=== PATIENT | female | born 1970 ===

== ENCOUNTER 2019-05-19 08:48 | Outpatient (CLI) | payer BC ==
--- NOTE | 2019-05-19 10:06 | MRI ---
Exam: Brain MRI and internal auditory canal MRI with and without contrast HISTORY: Hearing loss COMPARISON: None FINDINGS: Brain MRI: Hemorrhage: No parenchymal hemorrhage or extra-axial hematoma Calvarium: Appropriate T1 marrow signal intensity Midline brain parenchyma: Unremarkable Cerebrum:No parenchymal mass, mass effect or midline shift. Brain volume is age-appropriate. Cortical norman-white matter differentiation is preserved. No significant T2 or FLAIR white matter hyperintensities. Ventricles: No evidence of hydrocephalus. Sinuses and mastoid air cells: Adequate aeration Diffusion: Central arterial flow is maintained. Absent restricted diffusion. Postcontrast images: No pathologic enhancement of the brain parenchyma. Internal auditory canal MRI: Symmetric signal intensity of the VII/VIII cranial nerve complexes as well as the internal artery can al and inner ear structures. There is no abnormal enhancement There is appropriate signal intensity in the visualized V and cranial nerve complexes. No abnormal enhancement. IMPRESSION: 1. Unremarkable pre and postcontrast brain MRI. 2. Unremarkable MRI of the internal artery canals as well as the VII and VIII cranial nerves.
== END 2019-05-19 08:49 | disposition home or self-care (01) ==
LOC: SCSMRI 08:48
PROVIDERS: ATTEND Specialist
DX: H90.5 Unspecified sensorineural hearing loss (principal)
CPT/HCPCS: 70553

== ENCOUNTER 2019-06-26 12:20 | Outpatient (CLI) | payer BC ==
--- NOTE | 2019-06-26 13:33 | CT ---
CT temporal bones noncontrast: DATE: 06/26/2019 HISTORY: 48-year-old female with dizziness, pulsatile tinnitus, and left ear hearing loss. FINDINGS: Bilateral middle ear cavities, mastoid antra, and mastoid air cells, are clear. Ossicles are intact w ith no displacement or erosion. No dehiscence of superior semicircular canals. No obvious dehiscence of the tegmen tympani. Subcutaneous to are bilaterally intact. No morphologic abnormality identified involving facial nerve canals, internal auditory canals, cochleae, vestibules, vestibular aqueducts, semicircular canals, carotid canals, and jugular bulbs. There is metallic mesh at the floor of the right orbit. IMPRESSION: 1. Normal appearance of bilateral temporal bone structures. 2. Status post surgical repair of old right orbital floor fracture.
--- NOTE | 2019-06-26 13:58 | CT ---
EXAM: CT ANGIOGRAM OF THE HEAD: INDICATION: Dizziness. Left ear tinnitus. Diagnosed with Meniere's disease 3 years ago. COMPARISON: None. TECHNIQUE: CT angiogram of the head and neck are performed in the axial plane. Three-dimensional reformatted jake ges are submitted for interpretation. FINDINGS: NONCONTRAST HEAD CT: No parenchymal hemorrhage. No extra axial hematoma. No midline shift. Basilar cisterns are patent. Brain volume, age-appropriate. Minimal opacification of the right maxillary sinus. Postsurgical change involving the right orbital f erin and right maxillary sinus. Remote trauma is suspected. Intact calvarium. POSTCONTRAST CT OF BRAIN: Pathologic enhancement: No pathologic enhancement the brain. CTA OF THE BRAIN: Intracranial internal carotid arteries:Symmetric enhancement and luminal diameter. No significant fredy nosis. Anterior circulation: Symmetric enhancement and luminal diameter the A1 and M1 segments. Appropriate enhancement and luminal diameter the proximal A2 segments and proximal MCA branches. Intracranial vertebral arteries: Appropriate enhancement and luminal diameter. Bilateral PICA artery origins are grossly unremarkable. Posterior circulation: Both vertebral arteries supply a normal-caliber basilar artery. Appropriate en hancement and luminal diameter of the basilar artery and bilateral P1 segments. IMPRESSION: No hemodynamically significant stenosis, occlusion or aneurysmal formation. Transcribed Date/Time: 06/26/2019 2:08 PM
[2019-06-26] MEDS ORDERED: Iopamidol-370 76% 500 ML 1 ML ONE (14:37)
== END 2019-06-26 12:21 | disposition home or self-care (01) ==
LOC: BICCT 12:20
PROVIDERS: ATTEND Otolaryngology Otology & Neurotology
DX: R42 Dizziness and giddiness (principal); Z98.890 Other specified postprocedural states
CPT/HCPCS: 70480; 70496; Q9967

== ENCOUNTER → 2019-06-29 | Day surgery (SDC) | payer BC ==
[2019-06-28 13:14] VITALS: BMI 24.0
[2019-06-29 08:19] VITALS: BP 108/73; TEMP 97.7
--- NOTE | 2019-06-29 10:23 | RAD ---
FLUOROSCOPICALLY GUIDED LUMBAR PUNCTURE: HISTORY: Dizziness. EXPOSURE: 0.4 minutes. 37.8 mGy*^m2. 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 Vertebral body hei ght is maintained. No fracture. Disc space heights are preserved. No spinal listhesis or spondylolysis. Successful lumbar puncture at the L2-L3 level. A total of 8.5 cc of clear CSF was collected. Opening pressure: 9 cm of water. Closing pressure: 4 cm of water. IMPRESSION: Successful lumbar puncture. Transcribed Date/Time: 06/29/2019 10:36 AM
== END ==
LOC: RAD 07:12
PROVIDERS: ATTEND Otolaryngology Otology & Neurotology
PROC: 00JU3ZZ Inspection of Spinal Canal, Percutaneous Approach (ICD-10-PCS; principal; 2019-06-29)
DX: R42 Dizziness and giddiness (principal); H90.5 Unspecified sensorineural hearing loss; G43.009 Migraine without aura, not intractable, without status migrainosus; H69.92 Unspecified Eustachian tube disorder, left ear; G93.2 Benign intracranial hypertension; F41.9 Anxiety disorder, unspecified; H93.19 Tinnitus, unspecified ear; F90.9 Attention-deficit hyperactivity disorder, unspecified type; K21.9 Gastro-esophageal reflux disease without esophagitis; Z79.899 Other long term (current) drug therapy
CPT/HCPCS: 62270